=== PATIENT | female | born 1950 | race Two or more races ===

== ENCOUNTER 2021-12-17 06:58 | Day surgery (SDC) | payer MEDICARE, OTHER ==
[2021-12-17] VITALS (8 sets, daily range): BP systolic 105–133; BP diastolic 59–76
[~2021-12-17] VITALS: Ht 152.4 cm; Wt 99.3 kg
[~2021-12-17 06:58] MED LIST: ACET-1158 PO; AMLO-489 PO; ASPI-498 PO; HYDR12.56 PO; LOSA-39 PO; METF-371 PO; OMEGCAP2 PO; SIMV10TA84 PO
[2021-12-17] MEDS ORDERED: LIDOCAINE 2%HCL (LOCAL ANESTH.) INJ 10ml MDV ONE (07:52)
[2021-12-17] MEDS ORDERED: ANGIOMAX 250 MG VIAL IV ONE (08:03)
[2021-12-17] MEDS ORDERED: fentaNYL CITRATE 100 MCG/2 ML VL ONE (08:04)
[2021-12-17] MEDS ORDERED: SODIUM CHL 0.9% 0 ML ONE (08:04)
[2021-12-17] MEDS ORDERED: HEPARIN SODIUM (PORCINE) 5000 UNITS/ML 1ML VIAL ONE (08:04)
[2021-12-17] MEDS ORDERED: VERAPAMIL 2.5MG/ML INJ 2ML VIAL IV ONE (08:04)
[2021-12-17] MEDS ORDERED: MIDAZOLAM HCL 2MG/2ML 2ml VIAL (1mg/ml) ONE (08:04)
== END 2021-12-17 11:15 | disposition home or self-care (01) ==
LOC: CATH 06:58
PROVIDERS: ATTEND Internal Medicine Cardiovascular Disease
DX: I25.10 Atherosclerotic heart disease of native coronary artery without angina pectoris (principal); R06.02 Shortness of breath; I35.0 Nonrheumatic aortic (valve) stenosis; I10 Essential (primary) hypertension; E78.5 Hyperlipidemia, unspecified; E66.01 Morbid (severe) obesity due to excess calories; E11.9 Type 2 diabetes mellitus without complications; I27.20 Pulmonary hypertension, unspecified; R06.09 Other forms of dyspnea; Z20.822 Contact with and (suspected) exposure to COVID-19; Z79.899 Other long term (current) drug therapy; Z79.84 Long term (current) use of oral hypoglycemic drugs; Z98.890 Other specified postprocedural states
CPT/HCPCS: 93454; C1760; C1769; C1894; J1644; J2001; J2250; J3010; J7030; U0003; 99152; 99153